=== PATIENT | female | born 1970 | race Two or more races ===

== ENCOUNTER 2019-11-09 14:15 | Inpatient (IN) | payer MEDICARE, MEDICAID ==
[~2019-11-09] VITALS: Ht 162.6 cm; Wt 89.8 kg
[~2019-11-09 14:15] MED LIST: ALBU18HF2 IH; ASPI-1497 PO; CARV3.1242 MT; CLON-457 MT; DIVA500T3 PO; FURO-152 PO; HYDR-4135 PO; KEPP500 PO; LORA-249 PO; POLY17PO3 MT; RISP0.2514 MT; SERT50TA MT; TRAZ-251 MT
[2019-11-09 15:21] LABS: BASOPHILS % 0.6 % (0.0-2.0); EOSINOPHILS % 1.2 % (0.0-5.0); HEMATOCRIT. 27.5 % (36.0-48.0); HEMOGLOBIN. 9.5 g/dL (12.0-16.0); MEAN CORPUSCULAR HEMOGLOBIN 32.1 pg (28.0-32.0); MEAN CORPUSCULAR VOLUME 92.9 fL (81.0-99.0); MEAN PLATELET VOLUME 7.2 fl (7.4-10.4); MONOCYTES % 5.8 % (2.0-8.0); NEUTROPHILS % 72.4 % (40.0-76.0); PLATELET 243 x1000/uL (130-400); RED BLOOD CELL COUNT 2.96 mill/uL (4.2-5.4); RED CELL DISTRIBUTION WIDTH 14.5 % (11.6-14.6)
[2019-11-09 15:28] LABS: CHLORIDE 98 mEq/L (98-107)
[2019-11-09] MEDS ORDERED: NITROGLYCERIN 0.4MG TABLET SL SL ONE (15:45)
[2019-11-09] MEDS ORDERED: ASPIRIN 325MG TABLET PO ONE (19:30)
[2019-11-09] MEDS ORDERED: NITROGLYCERIN 0.4MG TABLET SL SL PRN (19:45)
[2019-11-09] MEDS ORDERED: IPRATROPIUM/ALBUTEROL 0.5-3(2.5)MG/3ML NEB NEB PRN (19:45)
[2019-11-09] MEDS ORDERED: ACETAMINOPHEN 325MG TABLET PO PRN ×2 (19:45)
[2019-11-09] MEDS ORDERED: CLONIDINE 0.1MG TABLET PO PRN (19:45)
[2019-11-09] MEDS ORDERED: TRAMADOL 50MG TABLET PO PRN (19:45)
[2019-11-09] MEDS ORDERED: MAGNESIUM/ALUMINUM HYDROXIDE/SIMETHICONE 30ML UDC PO PRN (19:45)
[2019-11-09] MEDS ORDERED: ONDANSETRON HCL 4MG/2ML INJ IV PRN (19:45)
[2019-11-09] MEDS ORDERED: DOCUSATE SODIUM 100MG CAPSULE PO PRN (19:45)
[2019-11-09] MEDS ORDERED: GUAIFENESIN 200MG/10ML SUGAR FREE UDC PO PRN (19:45)
[2019-11-09] MEDS ORDERED: CLONIDINE 0.3MG TABLET PO ONE (20:00)
[2019-11-09] MEDS ORDERED: METOPROLOL TARTRATE 25MG TABLET PO SCH (21:00)
[2019-11-09 21:18] VITALS: BP 145/84
[2019-11-09 22:00] VITALS: BP 145/84
[2019-11-09] MEDS: ENOXAPARIN 40MG/0.4ML SYR SUBCUT SCH (22:31)
[2019-11-09] MEDS: LORAZEPAM 2MG/ML CPJ IV PRN (22:31)
[2019-11-09] MEDS: DIPHENHYDRAMINE 50MG/ML VIAL IV PRN (22:31)
[2019-11-09] MEDS: LISINOPRIL 20MG TABLET PO SCH (22:32)
[2019-11-09] MEDS: FAMOTIDINE 20MG TABLET PO SCH (22:33)
[2019-11-09] MEDS: ZOLPIDEM TARTRATE 5MG TABLET PO PRN (22:33)
[2019-11-09] MEDS: ASCORBIC ACID 500 MG TABLET PO SCH (22:33)
[2019-11-09] MEDS: HYDRALAZINE HCL 50MG TABLET PO SCH (22:33)
[2019-11-09] MEDS: LEVETIRACETAM 500MG TABLET PO SCH (22:33)
[2019-11-09 23:47] LABS: *AMPHETAMINES SCREEN URINE NEGATIVE (NEGATIVE); *BARBITURATES SCREEN URINE NEGATIVE (NEGATIVE); *BENZODIAZEPINES SCREEN URINE NEGATIVE (NEGATIVE); *COCAINE SCREEN URINE NEGATIVE (NEGATIVE); CANNABINOID URINE SCREEN NEGATIVE (NEGATIVE); PHENCYCLIDINE URINE SCREEN NEGATIVE (NEGATIVE)
[2019-11-09 23:48] LABS: METHADONE URINE SCREEN NEGATIVE (NEGATIVE); OPIATES URINE SCREEN NEGATIVE (NEGATIVE)
[2019-11-10] VITALS (7 sets, daily range): BP systolic 105–146; BP diastolic 53–95
[2019-11-10 00:20] LABS: CREATINE KINASE 112 IU/L (26-192)
[2019-11-10 00:21] LABS: CREATINE KINASE MB FRACTION < 1.0 ng/mL (0.5-3.6)
[2019-11-10] MEDS: HYDRALAZINE HCL 50MG TABLET PO SCH (05:15)
[2019-11-10] MEDS ORDERED: CARVEDILOL 12.5MG TABLET PO SCH (06:00)
[2019-11-10 06:13] LABS: CREATINE KINASE 100 IU/L (26-192)
[2019-11-10 06:15] LABS: CREATINE KINASE MB FRACTION < 1.0 ng/mL (0.5-3.6)
[2019-11-10] MEDS: SEVELAMER CARBONATE 800 MG TABLET PO SCH ×3 (06:40→17:28)
[2019-11-10] MEDS: ZINC SULFATE 220 MG ( 50 ) CAPSULE PO SCH (09:00)
[2019-11-10] MEDS ORDERED: AMLODIPINE 10MG TABLET PO SCH (09:00)
[2019-11-10] MEDS ORDERED: ASPIRIN 325MG EC TABLET PO SCH (09:00)
[2019-11-10] MEDS: LISINOPRIL 20MG TABLET PO SCH (09:00)
[2019-11-10] MEDS: LEVETIRACETAM 500MG TABLET PO SCH ×2 (09:22→21:08)
[2019-11-10] MEDS: ASCORBIC ACID 500 MG TABLET PO SCH ×2 (09:22→21:08)
[2019-11-10] MEDS ORDERED: PNEUMOCOCCAL 23-VAL P-SAC VAC 0.5 ML IM ONE (12:00)
[2019-11-10] MEDS: HYDRALAZINE HCL 25MG TABLET PO SCH ×2 (13:49→21:08)
[2019-11-10] MEDS: CARVEDILOL 6.25 MG TABLET PO SCH (17:18)
[2019-11-10] MEDS: FAMOTIDINE 20MG TABLET PO SCH (21:08)
[2019-11-10] MEDS: ZOLPIDEM TARTRATE 5MG TABLET PO PRN (21:09)
[2019-11-10] MEDS: ENOXAPARIN 40MG/0.4ML SYR SUBCUT SCH (21:09)
[2019-11-10] MEDS: LORAZEPAM 2MG/ML CPJ IV PRN (21:09)
[2019-11-10] MEDS: DIPHENHYDRAMINE 50MG/ML VIAL IV PRN (21:09)
[2019-11-11] VITALS: BP 113/57
[2019-11-11 04:00] VITALS: BP 170/114
[2019-11-11] MEDS: HYDRALAZINE HCL 25MG TABLET PO SCH ×3 (05:22→20:55)
[2019-11-11] MEDS: CARVEDILOL 6.25 MG TABLET PO SCH ×2 (05:22→17:26)
[2019-11-11] MEDS: LORAZEPAM 2MG/ML CPJ IV PRN ×2 (05:28→20:56)
[2019-11-11 06:09] LABS: BASOPHILS % 0.6 % (0.0-2.0); EOSINOPHILS % 1.3 % (0.0-5.0); HEMATOCRIT. 27.1 % (36.0-48.0); HEMOGLOBIN. 9.2 g/dL (12.0-16.0); LYMPHOCYTES % 24.4 % (20.0-50.0); MEAN CORPUSCULAR HEMOGLOBIN 31.5 pg (28.0-32.0); MEAN PLATELET VOLUME 7.4 fl (7.4-10.4); NEUTROPHILS % 62.7 % (40.0-76.0); PLATELET 248 x1000/uL (130-400); RED BLOOD CELL COUNT 2.91 mill/uL (4.2-5.4); RED CELL DISTRIBUTION WIDTH 14.3 % (11.6-14.6)
[2019-11-11 08:00] VITALS: BP 135/87
[2019-11-11] MEDS: ASCORBIC ACID 500 MG TABLET PO SCH ×2 (09:57→20:53)
[2019-11-11] MEDS: LISINOPRIL 10MG TABLET PO SCH (09:58)
[2019-11-11] MEDS: AMLODIPINE 2.5MG TABLET PO SCH (09:58)
[2019-11-11] MEDS: ASPIRIN 81MG EC TABLET PO SCH (09:58)
[2019-11-11] MEDS: SEVELAMER CARBONATE 800 MG TABLET PO SCH ×3 (09:59→16:48)
[2019-11-11] MEDS: ZINC SULFATE 220 MG ( 50 ) CAPSULE PO SCH (09:59)
[2019-11-11] MEDS: LEVETIRACETAM 500MG TABLET PO SCH ×2 (09:59→20:53)
[2019-11-11 12:00] VITALS: BP_SYST 152; BP_SYST 158; BP_DIAS 90; BP_DIAS 93
[2019-11-11 16:00] VITALS: BP 121/60
[2019-11-11 20:00] VITALS: BP 129/69
[2019-11-11] MEDS: FAMOTIDINE 20MG TABLET PO SCH (20:52)
[2019-11-11] MEDS: ENOXAPARIN 40MG/0.4ML SYR SUBCUT SCH (20:52)
[2019-11-11] MEDS: DIPHENHYDRAMINE 50MG/ML VIAL IV PRN (20:56)
[2019-11-11] MEDS: ZOLPIDEM TARTRATE 5MG TABLET PO PRN (23:38)
[2019-11-12] VITALS (7 sets, daily range): BP systolic 107–166; BP diastolic 55–102
[2019-11-12] MEDS: CARVEDILOL 6.25 MG TABLET PO SCH ×2 (05:24→17:18)
[2019-11-12] MEDS: HYDRALAZINE HCL 25MG TABLET PO SCH ×3 (05:24→22:57)
[2019-11-12 06:45] LABS: BASOPHILS % 0.5 % (0.0-2.0); EOSINOPHILS % 1.9 % (0.0-5.0); HEMATOCRIT. 26.1 % (36.0-48.0); HEMOGLOBIN. 8.8 g/dL (12.0-16.0); LYMPHOCYTES % 27.7 % (20.0-50.0); MEAN CORPUSCULAR HEMOGLOBIN 31.5 pg (28.0-32.0); MEAN CORPUSCULAR VOLUME 92.9 fL (81.0-99.0); MEAN PLATELET VOLUME 7.3 fl (7.4-10.4); MONOCYTES % 11.3 % (2.0-8.0); NEUTROPHILS % 58.6 % (40.0-76.0); PLATELET 233 x1000/uL (130-400); RED BLOOD CELL COUNT 2.81 mill/uL (4.2-5.4); RED CELL DISTRIBUTION WIDTH 14.7 % (11.6-14.6)
[2019-11-12] MEDS: ZINC SULFATE 220 MG ( 50 ) CAPSULE PO SCH (08:38)
[2019-11-12] MEDS: LEVETIRACETAM 500MG TABLET PO SCH ×2 (08:38→22:57)
[2019-11-12] MEDS: SEVELAMER CARBONATE 800 MG TABLET PO SCH ×3 (08:38→17:17)
[2019-11-12] MEDS: ASPIRIN 81MG EC TABLET PO SCH (08:38)
[2019-11-12] MEDS: ASCORBIC ACID 500 MG TABLET PO SCH ×2 (08:38→22:57)
[2019-11-12] MEDS: LISINOPRIL 10MG TABLET PO SCH (08:45)
[2019-11-12] MEDS: AMLODIPINE 2.5MG TABLET PO SCH (08:45)
[2019-11-12] MEDS: DIPHENHYDRAMINE 50MG/ML VIAL IV PRN (20:21)
[2019-11-12] MEDS: LORAZEPAM 2MG/ML CPJ IV PRN (20:24)
[2019-11-12] MEDS: FAMOTIDINE 20MG TABLET PO SCH (22:57)
[2019-11-12] MEDS: ENOXAPARIN 40MG/0.4ML SYR SUBCUT SCH (22:57)
[2019-11-12] MEDS: ZOLPIDEM TARTRATE 5MG TABLET PO PRN (23:06)
[2019-11-13 04:00] VITALS: BP 164/127
[2019-11-13] MEDS: HYDRALAZINE HCL 25MG TABLET PO SCH (05:12)
[2019-11-13] MEDS: CARVEDILOL 6.25 MG TABLET PO SCH (05:12)
[2019-11-13 05:14] VITALS: BP 180/102
[2019-11-13 06:34] VITALS: BP 147/83
[2019-11-13 06:37] LABS: BASOPHILS % 0.5 % (0.0-2.0); EOSINOPHILS % 1.1 % (0.0-5.0); HEMATOCRIT. 27.6 % (36.0-48.0); HEMOGLOBIN. 9.3 g/dL (12.0-16.0); LYMPHOCYTES % 19.7 % (20.0-50.0); MEAN CORPUSCULAR VOLUME 92.4 fL (81.0-99.0); MEAN PLATELET VOLUME 7.4 fl (7.4-10.4); MONOCYTES % 10.2 % (2.0-8.0); NEUTROPHILS % 68.5 % (40.0-76.0); PLATELET 248 x1000/uL (130-400); RED BLOOD CELL COUNT 2.99 mill/uL (4.2-5.4); RED CELL DISTRIBUTION WIDTH 14.2 % (11.6-14.6)
[2019-11-13 08:00] VITALS: BP_SYST 166; BP_SYST 186; BP_DIAS 100; BP_DIAS 71
[2019-11-13] MEDS: AMLODIPINE 2.5MG TABLET PO SCH (08:35)
[2019-11-13] MEDS: LEVETIRACETAM 500MG TABLET PO SCH (08:35)
[2019-11-13] MEDS: SEVELAMER CARBONATE 800 MG TABLET PO SCH (08:36)
[2019-11-13] MEDS: ZINC SULFATE 220 MG ( 50 ) CAPSULE PO SCH (08:36)
[2019-11-13] MEDS: ASCORBIC ACID 500 MG TABLET PO SCH (08:36)
[2019-11-13] MEDS: ASPIRIN 81MG EC TABLET PO SCH (08:36)
[2019-11-13] MEDS: LISINOPRIL 10MG TABLET PO SCH (08:36)
[2019-11-13 10:19] VITALS: BP 166/71
[2019-11-13] MEDS ORDERED: AMLODIPINE 2.5MG TABLET PO SCH (17:00)
== END 2019-11-13 10:41 | disposition home or self-care (01) | DRG 280 ==
LOC: ER 14:34 → 8WST 19:21 → ENRESERV 19:50
PROVIDERS: ADMIT Internal Medicine; ATTEND Internal Medicine
PROC: 5A1D70Z Performance of Urinary Filtration, Intermittent, Less than 6 Hours Per Day (ICD-10-PCS; principal; 2019-11-12)
DX: I21.4 Non-ST elevation (NSTEMI) myocardial infarction (principal); I50.33 Acute on chronic diastolic (congestive) heart failure; N18.6 End stage renal disease; I61.9 Nontraumatic intracerebral hemorrhage, unspecified; I13.2 Hypertensive heart and chronic kidney disease with heart failure and with stage 5 chronic kidney disease, or end stage renal disease; E44.1 Mild protein-calorie malnutrition; E87.1 Hypo-osmolality and hyponatremia; G90.9 Disorder of the autonomic nervous system, unspecified; G40.909 Epilepsy, unspecified, not intractable, without status epilepticus; J44.9 Chronic obstructive pulmonary disease, unspecified; F17.210 Nicotine dependence, cigarettes, uncomplicated; I07.1 Rheumatic tricuspid insufficiency; I27.21 Secondary pulmonary arterial hypertension; F41.9 Anxiety disorder, unspecified; D63.8 Anemia in other chronic diseases classified elsewhere; E87.6 Hypokalemia; E03.9 Hypothyroidism, unspecified; E78.00 Pure hypercholesterolemia, unspecified; E78.5 Hyperlipidemia, unspecified; E66.01 Morbid (severe) obesity due to excess calories; I25.10 Atherosclerotic heart disease of native coronary artery without angina pectoris; I95.9 Hypotension, unspecified; I45.81 Long QT syndrome; S09.90XA Unspecified injury of head, initial encounter; X58.XXXA Exposure to other specified factors, initial encounter; Y92.89 Other specified places as the place of occurrence of the external cause; Y99.8 Other external cause status; Z82.3 Family history of stroke; Z82.49 Family history of ischemic heart disease and other diseases of the circulatory system; Y93.89 Activity, other specified; Z83.3 Family history of diabetes mellitus; Z86.73 Personal history of transient ischemic attack (TIA), and cerebral infarction without residual deficits; Z99.2 Dependence on renal dialysis; Z79.51 Long term (current) use of inhaled steroids; Z79.82 Long term (current) use of aspirin; Z79.899 Other long term (current) drug therapy; Z71.6 Tobacco abuse counseling; Z68.34 Body mass index [BMI] 34.0-34.9, adult
CPT/HCPCS: 36415; 71045; 72100; 72170; 80048; 80053; 80061; 80305; 82550; 82553; 83036; 83735; 83880; 84484; 85025; 90732; 93005; 93970; 99285; J1200; J1650; J2060

== ENCOUNTER 2020-04-02 15:08 | Inpatient (IN) | payer MEDICARE, MEDICAID ==
[~2020-04-02] VITALS: Ht 167.6 cm; Wt 74.4 kg
[2020-04-02 17:33] LABS: BASOPHILS % 0.7 % (0.0-2.0); EOSINOPHILS % 1.4 % (0.0-5.0); HEMATOCRIT. 31.8 % (36.0-48.0); HEMOGLOBIN. 10.3 g/dL (12.0-16.0); LYMPHOCYTES % 19.5 % (20.0-50.0); MEAN CORPUSCULAR HEMOGLOBIN 29.3 pg (28.0-32.0); MEAN CORPUSCULAR VOLUME 90.3 fL (81.0-99.0); MEAN PLATELET VOLUME 6.8 fl (7.4-10.4); MONOCYTES % 9.8 % (2.0-8.0); NEUTROPHILS % 68.6 % (40.0-76.0); PLATELET 247 x1000/uL (130-400); RED BLOOD CELL COUNT 3.52 mill/uL (4.2-5.4); RED CELL DISTRIBUTION WIDTH 15.9 % (11.6-14.6)
[2020-04-02 17:40] LABS: CHLORIDE 102 mEq/L (98-107)
[2020-04-02 17:41] LABS: HCG SCREEN NEGATIVE
[2020-04-02 17:44] LABS: D-DIMER 0.49 mg/L FEU (<0.50); PARTIAL THROMBOPLASTIN TIME 29.5 sec (23.4-31.0); PROTHROMBIN TIME 10.8 sec (9.6-11.0)
[2020-04-02] MEDS ORDERED: ASPIRIN 81MG TABLET PO ONE (19:00)
[2020-04-03] MEDS: LORAZEPAM 1MG TABLET PO PRN ×2 (00:29→21:54)
[2020-04-03 00:30] VITALS: BP 148/92
[2020-04-03 04:00] VITALS: BP 147/89
[2020-04-03] MEDS ORDERED: ONDANSETRON HCL 4MG/2ML INJ IV PRN (08:00)
[2020-04-03] MEDS ORDERED: ACETAMINOPHEN 325MG TABLET PO PRN (08:00)
[2020-04-03 08:02] VITALS: BP 168/90
[2020-04-03] MEDS ORDERED: LORAZEPAM 0.5MG TABLET PO PRN (08:15)
[2020-04-03] MEDS: CARVEDILOL 3.125 MG TABLET PO SCH ×2 (08:55→20:22)
[2020-04-03] MEDS: RISPERIDONE 0.25MG TABLET PO SCH ×2 (08:56→16:02)
[2020-04-03] MEDS: HYDRALAZINE HCL 50MG TABLET PO SCH ×3 (08:58→21:53)
[2020-04-03] MEDS: LEVETIRACETAM 500MG TABLET PO SCH ×2 (08:58→20:22)
[2020-04-03] MEDS ORDERED: DIVALPROEX SODIUM 500MG DR TABLET PO SCH (09:00)
[2020-04-03] MEDS ORDERED: ASPIRIN 81MG EC TABLET PO SCH (09:00)
[2020-04-03] MEDS ORDERED: SERTRALINE HCL 50MG TABLET PO SCH (09:00)
[2020-04-03] MEDS ORDERED: FUROSEMIDE 20MG TABLET PO SCH (09:00)
[2020-04-03] MEDS ORDERED: INFLUENZA VACCINE 05/PF 0.5 ML VIAL IM ONE (10:00)
[2020-04-03] MEDS ORDERED: LISINOPRIL 5MG TABLET PO SCH (11:00)
[2020-04-03] MEDS ORDERED: AMLODIPINE 5MG TABLET PO SCH (11:00)
[2020-04-03 12:00] VITALS: BP_SYST 160; BP_SYST 171; BP_SYST 173; BP_DIAS 123; BP_DIAS 126; BP_DIAS 75
[2020-04-03] MEDS ORDERED: CLONIDINE 0.1MG TABLET PO PRN (12:00)
[2020-04-03] MEDS ORDERED: CLONIDINE 0.1MG TABLET PO NR (12:00)
[2020-04-03] MEDS: AMLODIPINE 5MG TABLET PO SCH ×2 (12:05→20:27)
[2020-04-03 16:00] VITALS: BP 124/61
[2020-04-03] MEDS ORDERED: ATORVASTATIN CALCIUM 10MG TABLET PO SCH (21:00)
[2020-04-03] MEDS ORDERED: TRAZODONE HCL 50MG TABLET PO SCH (21:00)
[2020-04-04] MEDS: HYDRALAZINE HCL 50MG TABLET PO SCH (07:09)
[2020-04-04 08:29] LABS: BASOPHILS % 0.9 % (0.0-2.0); EOSINOPHILS % 2.2 % (0.0-5.0); HEMATOCRIT. 30.8 % (36.0-48.0); HEMOGLOBIN. 10.1 g/dL (12.0-16.0); LYMPHOCYTES % 26.2 % (20.0-50.0); MEAN CORPUSCULAR HEMOGLOBIN 29.8 pg (28.0-32.0); MEAN CORPUSCULAR VOLUME 91.4 fL (81.0-99.0); MEAN PLATELET VOLUME 7.3 fl (7.4-10.4); MONOCYTES % 9.2 % (2.0-8.0); NEUTROPHILS % 61.5 % (40.0-76.0); PLATELET 240 x1000/uL (130-400); RED BLOOD CELL COUNT 3.37 mill/uL (4.2-5.4); RED CELL DISTRIBUTION WIDTH 15.8 % (11.6-14.6)
== END 2020-04-04 09:00 | disposition left against medical advice (07) | DRG 73 ==
LOC: ER 15:08 → 5WST 21:29 → ENRESERV 22:09
PROVIDERS: ADMIT Internal Medicine; ATTEND Internal Medicine
PROC: 5A1D70Z Performance of Urinary Filtration, Intermittent, Less than 6 Hours Per Day (ICD-10-PCS; principal; 2020-04-02)
DX: G90.8 Other disorders of autonomic nervous system (principal); N18.6 End stage renal disease; E44.1 Mild protein-calorie malnutrition; I12.0 Hypertensive chronic kidney disease with stage 5 chronic kidney disease or end stage renal disease; E11.22 Type 2 diabetes mellitus with diabetic chronic kidney disease; J44.9 Chronic obstructive pulmonary disease, unspecified; F41.9 Anxiety disorder, unspecified; E78.5 Hyperlipidemia, unspecified; E03.9 Hypothyroidism, unspecified; Z99.2 Dependence on renal dialysis; Z79.899 Other long term (current) drug therapy; Z86.73 Personal history of transient ischemic attack (TIA), and cerebral infarction without residual deficits; D63.1 Anemia in chronic kidney disease
CPT/HCPCS: 36415; 71045; 71100; 80048; 80053; 80061; 83735; 83880; 84484; 84703; 85025; 85379; 90686; 93005; 93306; 99285

== ENCOUNTER 2020-08-04 12:23 | Inpatient (IN) | payer MEDICARE, MEDICAID ==
[~2020-08-04] VITALS: Ht 162.6 cm; Wt 89.9 kg
[2020-08-04] MEDS ORDERED: NITROGLYCERIN 0.4MG TABLET SL SL PRN (12:45)
[2020-08-04 13:27] LABS: CHLORIDE 106 mEq/L (98-107); EOSINOPHILS % 2.5 % (0.0-5.0); HEMATOCRIT. 29.1 % (36.0-48.0); HEMOGLOBIN. 10.1 g/dL (12.0-16.0); LYMPHOCYTES % 26.1 % (20.0-50.0); MEAN CORPUSCULAR HEMOGLOBIN 31.6 pg (28.0-32.0); MEAN CORPUSCULAR VOLUME 91.3 fL (81.0-99.0); MEAN PLATELET VOLUME 7.2 fl (7.4-10.4); MONOCYTES % 8.9 % (2.0-8.0); NEUTROPHILS % 61.5 % (40.0-76.0); PLATELET 232 x1000/uL (130-400); RED BLOOD CELL COUNT 3.19 mill/uL (4.2-5.4); RED CELL DISTRIBUTION WIDTH 14.6 % (11.6-14.6)
[2020-08-04 13:31] LABS: HCG SCREEN NEGATIVE
[2020-08-04] MEDS ORDERED: ASPIRIN 325MG EC TABLET PO ONE (14:00)
[2020-08-04] MEDS ORDERED: HYDROCODONE/ACETAMINOPHEN 10/325MG TABLET PO PRN (16:30)
[2020-08-04] MEDS ORDERED: DIPHENHYDRAMINE 50MG CAPSULE PO NR (17:30)
[2020-08-04] MEDS: AMLODIPINE 10MG TABLET PO SCH (17:47)
[2020-08-04 20:00] VITALS: BP 160/73
[2020-08-04] MEDS ORDERED: DOCUSATE SODIUM 250MG CAPSULE PO PRN (23:00)
[2020-08-04] MEDS: DIPHENHYDRAMINE 50MG/ML VIAL IV PRN (23:02)
[2020-08-05] VITALS (7 sets, daily range): BP systolic 125–171; BP diastolic 66–98
[2020-08-05 00:07] LABS: CREATINE KINASE 99 IU/L (26-192); CREATINE KINASE MB FRACTION < 1.0 ng/mL (0.5-3.6)
[2020-08-05] MEDS ORDERED: LOSA100T32 PO (00:24)
[2020-08-05] MEDS ORDERED: CARV25TA47 MT (00:27)
[2020-08-05] MEDS ORDERED: CLONIDINE HCL MT SCH (01:00)
[2020-08-05] MEDS ORDERED: MEDICATION NOT ON FORMULARY EA (Carvedilol 1 TAB) MT SCH (01:00)
[2020-08-05] MEDS: CLONIDINE 0.1MG TABLET PO SCH ×4 (01:52→21:00)
[2020-08-05] MEDS: CARVEDILOL 12.5MG TABLET PO SCH ×3 (01:54→21:00)
[2020-08-05 06:55] LABS: CHLORIDE 110 mEq/L (98-107)
[2020-08-05 07:07] LABS: LDL CHOLESTEROL 59 mg/dL (5-100)
[2020-08-05 07:08] LABS: CREATINE KINASE 129 IU/L (26-192); CREATINE KINASE MB FRACTION 1.3 ng/mL (0.5-3.6); HDL CHOLESTEROL 50 mg/dL (40-59)
[2020-08-05] MEDS: AMLODIPINE 10MG TABLET PO SCH ×2 (08:46→17:30)
[2020-08-05] MEDS ORDERED: LOSARTAN POTASSIUM 100 MG TABLET PO SCH (09:00)
[2020-08-05 10:14] LABS: BASOPHILS % 0.6 % (0.0-2.0); EOSINOPHILS % 3.3 % (0.0-5.0); HEMATOCRIT. 27.4 % (36.0-48.0); HEMOGLOBIN. 9.4 g/dL (12.0-16.0); LYMPHOCYTES % 24.8 % (20.0-50.0); MEAN CORPUSCULAR HEMOGLOBIN 31.1 pg (28.0-32.0); MEAN CORPUSCULAR VOLUME 91.1 fL (81.0-99.0); MEAN PLATELET VOLUME 7.4 fl (7.4-10.4); MONOCYTES % 7.6 % (2.0-8.0); NEUTROPHILS % 63.7 % (40.0-76.0); PLATELET 204 x1000/uL (130-400); RED BLOOD CELL COUNT 3.01 mill/uL (4.2-5.4); RED CELL DISTRIBUTION WIDTH 14.5 % (11.6-14.6)
[2020-08-05] MEDS: LOSARTAN POTASSIUM 100 MG TABLET PO SCH (17:30)
[2020-08-05] MEDS ORDERED: DIPHENHYDRAMINE 50MG/ML VIAL IV PRN (19:15)
[2020-08-05 20:16] LABS: HEPATITIS B SURFACE ANTIGEN NEGATIVE
[2020-08-05 20:46] LABS: HEPATITIS A AB IGM NEGATIVE (NEGATIVE)
[2020-08-05] MEDS: DIPHENHYDRAMINE 50MG/ML VIAL IV PRN (23:24)
[2020-08-06] VITALS: BP 145/79
[2020-08-06 04:00] VITALS: BP 107/60
[2020-08-06 08:00] VITALS: BP 125/60
[2020-08-06] MEDS: CLONIDINE 0.1MG TABLET PO SCH (09:32)
[2020-08-06] MEDS: CARVEDILOL 12.5MG TABLET PO SCH (09:32)
[2020-08-06 12:00] VITALS: BP 117/63
[2020-08-06 15:41] VITALS: BP_SYST 117; BP_SYST 136; BP_DIAS 63; BP_DIAS 78
[2020-08-06 16:00] VITALS: BP 136/78
[2020-08-06] MEDS: LOSARTAN POTASSIUM 100 MG TABLET PO SCH (16:58)
[2020-08-06] MEDS: AMLODIPINE 10MG TABLET PO SCH (16:58)
== END 2020-08-06 17:15 | disposition home or self-care (01) | DRG 311 ==
LOC: ER 12:23 → 5WST 15:43 → EDBEDREQ 15:45 → EDBEDREQTM 15:45 → ENRESERV 19:13 → 5WST 21:22
PROVIDERS: ADMIT Family Medicine; ATTEND Family Medicine
PROC: 5A1D70Z Performance of Urinary Filtration, Intermittent, Less than 6 Hours Per Day (ICD-10-PCS; principal; 2020-08-05)
DX: I24.8 Other forms of acute ischemic heart disease (principal); N18.6 End stage renal disease; I13.2 Hypertensive heart and chronic kidney disease with heart failure and with stage 5 chronic kidney disease, or end stage renal disease; I50.32 Chronic diastolic (congestive) heart failure; E46 Unspecified protein-calorie malnutrition; J44.9 Chronic obstructive pulmonary disease, unspecified; K59.00 Constipation, unspecified; I25.10 Atherosclerotic heart disease of native coronary artery without angina pectoris; D63.1 Anemia in chronic kidney disease; E03.9 Hypothyroidism, unspecified; E66.9 Obesity, unspecified; E78.5 Hyperlipidemia, unspecified; E87.5 Hyperkalemia; F41.9 Anxiety disorder, unspecified; Z82.49 Family history of ischemic heart disease and other diseases of the circulatory system; Z83.3 Family history of diabetes mellitus; Z86.73 Personal history of transient ischemic attack (TIA), and cerebral infarction without residual deficits; Z99.2 Dependence on renal dialysis; Z79.899 Other long term (current) drug therapy; Z79.51 Long term (current) use of inhaled steroids; Z79.82 Long term (current) use of aspirin; Z84.1 Family history of disorders of kidney and ureter; Z68.34 Body mass index [BMI] 34.0-34.9, adult; Z87.891 Personal history of nicotine dependence
CPT/HCPCS: 36415; 71045; 80053; 80061; 82550; 82553; 83880; 84484; 84703; 85025; 86705; 86709; 86803; 87340; 93005; 99291; J1200; J7040; Q0163

== ENCOUNTER 2021-02-11 13:48 | Emergency (ER) | payer MEDICARE, MEDICAID ==
[~2021-02-11] VITALS: Ht 162.6 cm; Wt 91.0 kg
[~2021-02-11 13:48] MED LIST changes: +CARV25TA47 MT; -CARV3.1242 MT; -HYDR-4135 PO; +LOSA100T32 PO
[2021-02-11 13:51] VITALS: BP 148/100
[2021-02-11] MEDS ORDERED: MECLIZINE 25MG TABLET PO ONE (14:15)
== END 2021-02-11 14:28 | disposition left against medical advice (07) ==
LOC: ER 13:48
DX: R51.9 Headache, unspecified (principal); R42 Dizziness and giddiness; I10 Essential (primary) hypertension; I12.0 Hypertensive chronic kidney disease with stage 5 chronic kidney disease or end stage renal disease; E11.22 Type 2 diabetes mellitus with diabetic chronic kidney disease; N18.6 End stage renal disease; Z99.2 Dependence on renal dialysis
CPT/HCPCS: 99283

== ENCOUNTER 2021-05-29 09:16 | Inpatient (IN) | payer MEDICARE, MEDICAID ==
[~2021-05-29] VITALS: Ht 160 cm; Wt 86.2 kg
[2021-05-29] MEDS ORDERED: HYDRALAZINE 20MG/ML VIAL IV ONE ×3 (09:30→11:45)
[2021-05-29 10:33] LABS: BASOPHILS % 0.6 % (0.0-2.0); EOSINOPHILS % 0.5 % (0.0-5.0); HEMATOCRIT. 32.4 % (36.0-48.0); HEMOGLOBIN. 11.1 g/dL (12.0-16.0); LYMPHOCYTES % 13.9 % (20.0-50.0); MEAN CORPUSCULAR HEMOGLOBIN 31.6 pg (28.0-32.0); MEAN CORPUSCULAR VOLUME 92.3 fL (81.0-99.0); MEAN PLATELET VOLUME 7.3 fl (7.4-10.4); MONOCYTES % 10.3 % (2.0-8.0); NEUTROPHILS % 74.7 % (40.0-76.0); PLATELET 248 x1000/uL (130-400); RED BLOOD CELL COUNT 3.51 mill/uL (4.2-5.4); RED CELL DISTRIBUTION WIDTH 14.9 % (11.6-14.6)
[2021-05-29 10:37] LABS: CHLORIDE 105 mEq/L (98-107)
[2021-05-29] MEDS ORDERED: INSULIN REGULAR (HUMULIN R) 300UNITS/3ML VIAL IV ONE ×2 (11:15→11:45)
[2021-05-29] MEDS ORDERED: DEXTROSE 50% WATER 50ML SYRINGE IV ONE ×2 (11:15→11:45)
[2021-05-29] MEDS ORDERED: CALCIUM GLUCONATE 1,000 MG in DEXT 5% WATER 100 ML IV ONE (11:15)
[2021-05-29] MEDS ORDERED: LORAZEPAM 2MG/ML CPJ IV ONE (12:30)
[2021-05-29] MEDS ORDERED: IPRATROPIUM/ALBUTEROL 0.5-3(2.5)MG/3ML NEB HHN PRN (13:00)
[2021-05-29] MEDS ORDERED: ONDANSETRON HCL 4MG/2ML INJ IV PRN (13:00)
[2021-05-29] MEDS ORDERED: LABETALOL 5MG/ML SYR 20 MG/4 ML SYRINGE IV ONE (13:00)
[2021-05-29] MEDS ORDERED: CLONIDINE 0.1MG TABLET PO PRN (13:00)
[2021-05-29] MEDS ORDERED: ACETAMINOPHEN 325MG TABLET PO PRN (13:00)
[2021-05-29 18:05] VITALS: BP 206/139
[2021-05-29] MEDS ORDERED: LOSARTAN POTASSIUM 50 MG TABLET PO SCH (18:15)
[2021-05-29] MEDS ORDERED: CARVEDILOL 6.25 MG TABLET PO SCH (18:15)
[2021-05-29 19:45] VITALS: BP 229/147
[2021-05-29] MEDS ORDERED: HYDRALAZINE 20MG/ML VIAL IV NR (21:15)
[2021-05-29] MEDS ORDERED: LORAZEPAM 2MG/ML CPJ IV PRN (21:15)
[2021-05-29] MEDS ORDERED: FUROSEMIDE 40MG/4ML VIAL IVP NR (21:15)
[2021-05-29] MEDS ORDERED: HYDRALAZINE 20MG/ML VIAL IV PRN (21:15)
[2021-05-29] MEDS: AMLODIPINE 5MG TABLET PO SCH (21:48)
[2021-05-29 22:00] VITALS: BP 180/137
[2021-05-29] MEDS: HYDRALAZINE HCL 100MG TABLET PO SCH (22:00)
[2021-05-29] MEDS ORDERED: CLONIDINE HCL 0.1MG/24HR PATCH TD SCH (23:00)
[2021-05-30] VITALS (12 sets, daily range): BP systolic 106–196; BP diastolic 69–112
[2021-05-30] MEDS ORDERED: LORAZEPAM 2MG/ML CPJ IV NR (01:15)
[2021-05-30] MEDS ORDERED: LORAZEPAM 2MG/ML CPJ IV PRN (01:15)
[2021-05-30] MEDS: HYDRALAZINE HCL 100MG TABLET PO SCH ×3 (06:00→22:00)
[2021-05-30 07:46] LABS: HEMOGLOBIN. 11.6 g/dL (12.0-16.0); MEAN CORPUSCULAR HEMOGLOBIN 31.3 pg (28.0-32.0); MEAN PLATELET VOLUME 7.3 fl (7.4-10.4); PLATELET 259 x1000/uL (130-400); RED CELL DISTRIBUTION WIDTH 15.4 % (11.6-14.6)
[2021-05-30 07:53] LABS: CHLORIDE 102 mEq/L (98-107)
[2021-05-30] MEDS: AMLODIPINE 5MG TABLET PO SCH ×2 (10:45→17:43)
[2021-05-30] MEDS: CARVEDILOL 6.25 MG TABLET PO SCH ×2 (11:00→20:43)
[2021-05-30] MEDS: DIPHENHYDRAMINE 25MG CAPSULE PO PRN ×2 (13:33→20:44)
[2021-05-30] MEDS: NITROGLYCERIN OINT 1GM/INCH UDPKT TD SCH (17:43)
[2021-05-30] MEDS: QUETIAPINE FUMARATE 25MG TABLET PO SCH (20:43)
[2021-05-30] MEDS: ASPIRIN 81MG EC TABLET PO SCH (20:44)
[2021-05-30] MEDS ORDERED: ATORVASTATIN CALCIUM 40MG TABLET PO SCH (21:00)
[2021-05-30 22:43] LABS: PLATELET ESTIMATE NORMAL
[2021-05-31] VITALS (8 sets, daily range): BP systolic 94–132; BP diastolic 59–93
[2021-05-31] MEDS: LORAZEPAM 1MG TABLET PO PRN ×2 (01:28→11:58)
[2021-05-31] MEDS: HYDRALAZINE HCL 100MG TABLET PO SCH ×2 (06:00→14:00)
[2021-05-31] MEDS: NITROGLYCERIN OINT 1GM/INCH UDPKT TD SCH ×3 (06:31→12:01)
[2021-05-31 07:23] LABS: HEMATOCRIT. 33.2 % (36.0-48.0); HEMOGLOBIN. 11.1 g/dL (12.0-16.0); MEAN CORPUSCULAR HEMOGLOBIN 31.5 pg (28.0-32.0); MEAN CORPUSCULAR VOLUME 94.3 fL (81.0-99.0); MEAN PLATELET VOLUME 7.3 fl (7.4-10.4); PLATELET 228 x1000/uL (130-400); RED BLOOD CELL COUNT 3.52 mill/uL (4.2-5.4); RED CELL DISTRIBUTION WIDTH 15.7 % (11.6-14.6)
[2021-05-31] MEDS: ASPIRIN 81MG EC TABLET PO SCH (09:15)
[2021-05-31] MEDS: QUETIAPINE FUMARATE 25MG TABLET PO SCH (09:15)
[2021-05-31] MEDS: AMLODIPINE 5MG TABLET PO SCH (09:16)
[2021-05-31] MEDS: CARVEDILOL 6.25 MG TABLET PO SCH (09:16)
[2021-05-31 16:46] LABS: PLATELET ESTIMATE NORMAL
== END 2021-05-31 18:01 | disposition home health service (06) | DRG 70 ==
LOC: ER 09:26 → 3WST 11:40 → EDBEDREQ 12:04 → EDBEDREQSVC 12:04 → ENRESERV 16:20
PROVIDERS: ADMIT Internal Medicine; ATTEND Internal Medicine
PROC: 5A1D70Z Performance of Urinary Filtration, Intermittent, Less than 6 Hours Per Day (ICD-10-PCS; principal; 2021-05-29)
DX: G93.41 Metabolic encephalopathy (principal); N18.6 End stage renal disease; E46 Unspecified protein-calorie malnutrition; I12.0 Hypertensive chronic kidney disease with stage 5 chronic kidney disease or end stage renal disease; E87.5 Hyperkalemia; I16.0 Hypertensive urgency; R77.8 Other specified abnormalities of plasma proteins; E11.22 Type 2 diabetes mellitus with diabetic chronic kidney disease; G40.909 Epilepsy, unspecified, not intractable, without status epilepticus; D63.8 Anemia in other chronic diseases classified elsewhere; E03.9 Hypothyroidism, unspecified; E78.5 Hyperlipidemia, unspecified; F41.9 Anxiety disorder, unspecified; J44.9 Chronic obstructive pulmonary disease, unspecified; Z79.899 Other long term (current) drug therapy; Z99.2 Dependence on renal dialysis; Z79.82 Long term (current) use of aspirin; Z82.49 Family history of ischemic heart disease and other diseases of the circulatory system; Z83.3 Family history of diabetes mellitus; Z79.84 Long term (current) use of oral hypoglycemic drugs; Z78.1 Physical restraint status; Z68.33 Body mass index [BMI] 33.0-33.9, adult; Z86.73 Personal history of transient ischemic attack (TIA), and cerebral infarction without residual deficits; Z87.891 Personal history of nicotine dependence
CPT/HCPCS: 36415; 70551; 71045; 80048; 80053; 80307; 82140; 82962; 83735; 84439; 84443; 84484; 85025; 93005; 93306; 93970; 99291; J0360; J0610; J1815; J2060; J7060; Q0163

== ENCOUNTER 2021-11-03 16:38 | Inpatient (IN) | payer MEDICARE, MEDICAID ==
[~2021-11-03] VITALS: Ht 160 cm; Wt 95.3 kg
[2021-11-03 17:09] LABS: BASOPHILS % 0.3 % (0.0-2.0); EOSINOPHILS % 1.4 % (0.0-5.0); HEMATOCRIT. 29.3 % (36.0-48.0); LYMPHOCYTES % 17.3 % (20.0-50.0); MEAN CORPUSCULAR HEMOGLOBIN 32.9 pg (28.0-32.0); MEAN CORPUSCULAR VOLUME 96.4 fL (81.0-99.0); MEAN PLATELET VOLUME 7.2 fl (7.4-10.4); PLATELET 273 x1000/uL (130-400); RED BLOOD CELL COUNT 3.04 mill/uL (4.2-5.4); RED CELL DISTRIBUTION WIDTH 13.9 % (11.6-14.6)
[2021-11-03 17:14] LABS: CHLORIDE 89 mEq/L (98-107)
[2021-11-04] MEDS ORDERED: GUAIFENESIN 200MG/10ML SUGAR FREE UDC PO PRN
[2021-11-04] MEDS ORDERED: HYDROMORPHONE HCL/PF 2MG/ML CPJ IV PRN
[2021-11-04] MEDS ORDERED: DOCUSATE SODIUM 100MG CAPSULE PO PRN
[2021-11-04] MEDS ORDERED: CLONIDINE 0.1MG TABLET PO PRN
[2021-11-04] MEDS ORDERED: MAGNESIUM/ALUMINUM HYDROXIDE/SIMETHICONE 30ML UDC PO PRN
[2021-11-04] MEDS ORDERED: IPRATROPIUM/ALBUTEROL 0.5-3(2.5)MG/3ML NEB HHN PRN
[2021-11-04] MEDS ORDERED: NITROGLYCERIN 0.4MG TABLET SL SL PRN
[2021-11-04] MEDS ORDERED: ACETAMINOPHEN 325MG TABLET PO PRN
[2021-11-04] MEDS ORDERED: MORPHINE SULFATE 2 MG/ML CPJ (NOT FOR IM USE) IV PRN
[2021-11-04] MEDS ORDERED: DEXTROSE 50% WATER 50ML SYRINGE IV PRN (00:30)
[2021-11-04 01:20] VITALS: BP 164/100
[2021-11-04 01:50] VITALS: BP 155/91
[2021-11-04] MEDS: BLOOD SUGAR DIAGNOSTIC STRIP TEST SCH ×4 (06:19→21:15)
[2021-11-04] MEDS: INSULIN LISPRO 100 UNITS/ML SUBCUT SCH ×4 (06:20→21:31)
[2021-11-04 08:00] VITALS: BP 170/101
[2021-11-04] MEDS: SERTRALINE HCL 50MG TABLET PO SCH (08:37)
[2021-11-04] MEDS: FUROSEMIDE 20MG TABLET PO SCH (08:38)
[2021-11-04] MEDS: CARVEDILOL 12.5MG TABLET PO SCH ×2 (08:38→21:30)
[2021-11-04] MEDS: ASPIRIN 81MG EC TABLET PO SCH (08:38)
[2021-11-04] MEDS: DIVALPROEX SODIUM 500MG DR TABLET PO SCH (08:38)
[2021-11-04] MEDS: LEVETIRACETAM 500MG TABLET PO SCH ×2 (08:39→21:28)
[2021-11-04] MEDS: LOSARTAN POTASSIUM 100 MG TABLET PO SCH (08:39)
[2021-11-04] MEDS ORDERED: MEDICATION NOT ON FORMULARY EA (Carvedilol 1 TAB) MT SCH (09:00)
[2021-11-04] MEDS: RISPERIDONE 0.25MG TABLET PO SCH ×2 (09:00→16:47)
[2021-11-04 10:49] LABS: BASOPHILS % 0.3 % (0.0-2.0); EOSINOPHILS % 0.8 % (0.0-5.0); HEMATOCRIT. 28.2 % (36.0-48.0); HEMOGLOBIN. 9.8 g/dL (12.0-16.0); LYMPHOCYTES % 10.7 % (20.0-50.0); MEAN CORPUSCULAR VOLUME 95.5 fL (81.0-99.0); MEAN PLATELET VOLUME 7.2 fl (7.4-10.4); MONOCYTES % 10.2 % (2.0-8.0); PLATELET 264 x1000/uL (130-400); RED BLOOD CELL COUNT 2.96 mill/uL (4.2-5.4); RED CELL DISTRIBUTION WIDTH 13.9 % (11.6-14.6)
[2021-11-04 11:03] LABS: CHLORIDE 90 mEq/L (98-107)
[2021-11-04 11:11] LABS: TOTAL IRON BINDING CAPACITY 239 ug/dL (250-450)
[2021-11-04 11:19] LABS: CREATINE KINASE MB FRACTION 3.1 ng/mL (0.5-3.6); HDL CHOLESTEROL 58 mg/dL (40-59); LDL CHOLESTEROL 80 mg/dL (5-100)
[2021-11-04 11:23] LABS: T4 FREE 0.9 ng/dL (0.76-1.46)
[2021-11-04 11:26] LABS: PHOSPHORUS 9.8 mg/dL (2.5-4.9)
[2021-11-04] MEDS: DIPHENHYDRAMINE 50MG CAPSULE PO PRN ×2 (11:29→17:31)
[2021-11-04 11:37] LABS: FOLIC ACID (FOLATE) SERUM 15.4 ng/mL (>5.38)
[2021-11-04] MEDS ORDERED: HYDRALAZINE HCL 100MG TABLET PO NR (11:45)
[2021-11-04] MEDS ORDERED: NALOXONE HCL 0.4MG/ML VIAL IV PRN (11:45)
[2021-11-04 12:00] VITALS: BP 164/70
[2021-11-04] MEDS: LORAZEPAM 0.5MG TABLET PO PRN (12:18)
[2021-11-04] MEDS: ONDANSETRON HCL 4MG/2ML INJ IV PRN (13:26)
[2021-11-04 16:00] VITALS: BP 121/51
[2021-11-04 17:56] LABS: CREATINE KINASE MB FRACTION 3.1 ng/mL (0.5-3.6)
[2021-11-04 20:00] VITALS: BP 166/92
[2021-11-04] MEDS: TRAZODONE HCL 50MG TABLET PO SCH (21:28)
[2021-11-04] MEDS: HYDRALAZINE HCL 100MG TABLET PO SCH (21:29)
[2021-11-05] VITALS: BP 134/46
[2021-11-05 01:57] LABS: CREATINE KINASE MB FRACTION 2.8 ng/mL (0.5-3.6)
[2021-11-05 04:00] VITALS: BP 130/99
[2021-11-05] MEDS: INSULIN LISPRO 100 UNITS/ML SUBCUT SCH ×4 (07:02→21:00)
[2021-11-05] MEDS: BLOOD SUGAR DIAGNOSTIC STRIP TEST SCH ×4 (07:02→21:01)
[2021-11-05 08:00] VITALS: BP 161/97
[2021-11-05] MEDS: RISPERIDONE 0.25MG TABLET PO SCH ×2 (08:46→18:30)
[2021-11-05] MEDS: SERTRALINE HCL 50MG TABLET PO SCH (08:46)
[2021-11-05] MEDS: FUROSEMIDE 20MG TABLET PO SCH (08:46)
[2021-11-05] MEDS: ONDANSETRON HCL 4MG/2ML INJ IV PRN (08:46)
[2021-11-05] MEDS: LEVETIRACETAM 500MG TABLET PO SCH ×2 (08:46→21:01)
[2021-11-05] MEDS: DIPHENHYDRAMINE 50MG CAPSULE PO PRN ×2 (08:56→22:34)
[2021-11-05] MEDS: CARVEDILOL 12.5MG TABLET PO SCH ×2 (08:57→21:01)
[2021-11-05] MEDS: HYDRALAZINE HCL 100MG TABLET PO SCH ×2 (08:58→21:01)
[2021-11-05] MEDS: DIVALPROEX SODIUM 500MG DR TABLET PO SCH (08:58)
[2021-11-05] MEDS: ASPIRIN 81MG EC TABLET PO SCH (08:58)
[2021-11-05] MEDS: LOSARTAN POTASSIUM 100 MG TABLET PO SCH (09:02)
[2021-11-05] MEDS: LORAZEPAM 0.5MG TABLET PO PRN ×2 (11:58→22:34)
[2021-11-05 20:49] VITALS: BP 128/57
[2021-11-05] MEDS: TRAZODONE HCL 50MG TABLET PO SCH (21:01)
[2021-11-05] MEDS ORDERED: DIPHENHYDRAMINE 50MG/ML VIAL IV PRN (22:45)
[2021-11-05] MEDS ORDERED: DIPHENHYDRAMINE 50MG/ML VIAL IV NR (22:45)
[2021-11-06 00:04] VITALS: BP 134/77
[2021-11-06 06:37] VITALS: BP 133/76
[2021-11-06] MEDS: BLOOD SUGAR DIAGNOSTIC STRIP TEST SCH ×3 (06:51→16:55)
[2021-11-06] MEDS: INSULIN LISPRO 100 UNITS/ML SUBCUT SCH ×3 (07:10→16:56)
[2021-11-06 08:00] VITALS: BP 110/78
[2021-11-06 08:49] LABS: BASOPHILS % 0.4 % (0.0-2.0); EOSINOPHILS % 1.4 % (0.0-5.0); HEMATOCRIT. 26.8 % (36.0-48.0); HEMOGLOBIN. 9.2 g/dL (12.0-16.0); LYMPHOCYTES % 21.2 % (20.0-50.0); MEAN CORPUSCULAR HEMOGLOBIN 33.3 pg (28.0-32.0); MEAN CORPUSCULAR VOLUME 96.7 fL (81.0-99.0); MEAN PLATELET VOLUME 7.4 fl (7.4-10.4); MONOCYTES % 13.8 % (2.0-8.0); NEUTROPHILS % 63.2 % (40.0-76.0); PLATELET 227 x1000/uL (130-400); RED BLOOD CELL COUNT 2.77 mill/uL (4.2-5.4); RED CELL DISTRIBUTION WIDTH 13.9 % (11.6-14.6)
[2021-11-06] MEDS: FUROSEMIDE 20MG TABLET PO SCH ×2 (09:00→09:33)
[2021-11-06] MEDS: CARVEDILOL 12.5MG TABLET PO SCH (09:00)
[2021-11-06] MEDS: HYDRALAZINE HCL 100MG TABLET PO SCH (09:00)
[2021-11-06] MEDS: LOSARTAN POTASSIUM 100 MG TABLET PO SCH (09:00)
[2021-11-06 09:11] LABS: CHLORIDE 91 mEq/L (98-107)
[2021-11-06] MEDS: ASPIRIN 81MG EC TABLET PO SCH (09:32)
[2021-11-06] MEDS: LEVETIRACETAM 500MG TABLET PO SCH (09:32)
[2021-11-06] MEDS: DIVALPROEX SODIUM 500MG DR TABLET PO SCH (09:32)
[2021-11-06] MEDS: SERTRALINE HCL 50MG TABLET PO SCH (09:32)
[2021-11-06] MEDS: RISPERIDONE 0.25MG TABLET PO SCH ×2 (09:32→16:52)
[2021-11-06 10:01] LABS: PHOSPHORUS 9.8 mg/dL (2.5-4.9)
[2021-11-06 12:00] VITALS: BP 136/81
[2021-11-06] MEDS ORDERED: DIPHENHYDRAMINE 50MG/ML VIAL IV NR (15:00)
[2021-11-06 16:00] VITALS: BP 130/86
[2021-11-06] MEDS ORDERED: HEPARIN SODIUM 1,000 UNIT/1ML VIAL IV NR (17:00)
[2021-11-06 18:41] VITALS: BP 130/86
== END 2021-11-06 18:50 | disposition home or self-care (01) | DRG 280 ==
LOC: ER 16:38 → EDBEDREQTM 18:48 → EDBEDREQ 18:48 → MICUSO 22:48 → EDBEDREQ 23:14 → EDBEDREQSVC 23:14 → EDBEDREQTM 23:14 → 7EST 11-04 01:57
PROVIDERS: ADMIT Internal Medicine Nephrology; ATTEND Internal Medicine Nephrology
PROC: 5A1D70Z Performance of Urinary Filtration, Intermittent, Less than 6 Hours Per Day (ICD-10-PCS; principal; 2021-11-04)
DX: I13.2 Hypertensive heart and chronic kidney disease with heart failure and with stage 5 chronic kidney disease, or end stage renal disease (principal); I21.4 Non-ST elevation (NSTEMI) myocardial infarction; I50.33 Acute on chronic diastolic (congestive) heart failure; N18.6 End stage renal disease; E87.1 Hypo-osmolality and hyponatremia; I25.10 Atherosclerotic heart disease of native coronary artery without angina pectoris; J45.909 Unspecified asthma, uncomplicated; R56.9 Unspecified convulsions; F31.9 Bipolar disorder, unspecified; E11.22 Type 2 diabetes mellitus with diabetic chronic kidney disease; F41.9 Anxiety disorder, unspecified; D63.1 Anemia in chronic kidney disease; E66.9 Obesity, unspecified; E87.8 Other disorders of electrolyte and fluid balance, not elsewhere classified; Z79.899 Other long term (current) drug therapy; F15.90 Other stimulant use, unspecified, uncomplicated; Z79.82 Long term (current) use of aspirin; Z80.9 Family history of malignant neoplasm, unspecified; Z68.37 Body mass index [BMI] 37.0-37.9, adult; Z82.3 Family history of stroke; Z99.2 Dependence on renal dialysis; Z82.49 Family history of ischemic heart disease and other diseases of the circulatory system; Z83.3 Family history of diabetes mellitus
CPT/HCPCS: 36415; 71045; 80053; 80061; 82542; 82550; 82553; 82607; 82728; 82746; 82962; 83036; 83540; 83550; 83735; 83880; 83930; 84100; 84439; 84443; 84484; 85025; 85379; 93005; 93306; 93970; 99285; C1893; J1200; J1644; J1815; J2270; J2405; Q0163

== ENCOUNTER 2022-02-19 18:14 | Inpatient (IN) | payer MEDICARE, MEDICAID ==
[~2022-02-19] VITALS: Ht 160 cm; Wt 88.9 kg
[2022-02-19 21:15] LABS: HEMATOCRIT. 21.8 % (36.0-48.0); HEMOGLOBIN. 7.5 g/dL (12.0-16.0); MEAN CORPUSCULAR HEMOGLOBIN 31.9 pg (28.0-32.0); MEAN CORPUSCULAR VOLUME 92.5 fL (81.0-99.0); MEAN PLATELET VOLUME 7.1 fl (7.4-10.4); PLATELET 195 x1000/uL (130-400); RED BLOOD CELL COUNT 2.35 mill/uL (4.2-5.4); RED CELL DISTRIBUTION WIDTH 14.6 % (11.6-14.6)
[2022-02-19 21:20] LABS: CHLORIDE 95 mEq/L (98-107)
[2022-02-19 21:34] LABS: PLATELET ESTIMATE NORMAL
[2022-02-20] MEDS ORDERED: ASPIRIN 81MG TABLET PO ONE (01:15)
[2022-02-20] MEDS ORDERED: ASPIRIN 81MG TABLET PO NR (05:30)
[2022-02-20] MEDS: CLONIDINE 0.1MG TABLET PO PRN (07:01)
[2022-02-20] MEDS: AMLODIPINE 10MG TABLET PO SCH (09:25)
[2022-02-20] MEDS ORDERED: HYDRALAZINE HCL 50MG TABLET PO NR (12:30)
[2022-02-20] MEDS ORDERED: ONDANSETRON HCL 4MG/2ML INJ IV PRN (12:30)
[2022-02-20] MEDS ORDERED: ACETAMINOPHEN 325MG TABLET PO PRN (12:30)
[2022-02-20] MEDS: HYDRALAZINE HCL 50MG TABLET PO SCH ×2 (14:00→22:00)
[2022-02-20] MEDS ORDERED: EPOETIN ALFA-EPBX 4,000 UNIT/ML VIAL SUBCUT NR (21:00)
[2022-02-20] MEDS ORDERED: AMLO5TAB88 MT (21:20)
[2022-02-20 21:23] VITALS: BP 185/89
[2022-02-20] MEDS ORDERED: CLONIDINE 0.1MG TABLET PO PRN (21:30)
[2022-02-20] MEDS ORDERED: IPRATROPIUM/ALBUTEROL 0.5-3(2.5)MG/3ML NEB HHN PRN (21:30)
[2022-02-20] MEDS ORDERED: DIVA500T51 PO (22:13)
[2022-02-20] MEDS: LEVETIRACETAM 500MG/5ML CUP PO SCH (22:31)
[2022-02-20] MEDS: RISPERIDONE 0.25MG TABLET PO SCH (22:31)
[2022-02-20] MEDS: TRAZODONE HCL 50MG TABLET PO SCH (22:31)
[2022-02-20] MEDS: CARVEDILOL 12.5MG TABLET PO SCH (22:32)
[2022-02-20 23:06] VITALS: BP 185/89
[2022-02-21] VITALS (10 sets, daily range): BP systolic 120–183; BP diastolic 54–98
[2022-02-21] MEDS: LORAZEPAM 0.5MG TABLET PO PRN (03:55)
[2022-02-21] MEDS: CLONIDINE 0.1MG TABLET PO PRN (04:28)
[2022-02-21] MEDS: HYDRALAZINE HCL 50MG TABLET PO SCH ×3 (05:39→21:20)
[2022-02-21 06:38] LABS: BASOPHILS % 0.4 % (0.0-2.0); EOSINOPHILS % 3.8 % (0.0-5.0); HEMOGLOBIN. 7.6 g/dL (12.0-16.0); LYMPHOCYTES % 20.5 % (20.0-50.0); MEAN CORPUSCULAR HEMOGLOBIN 31.8 pg (28.0-32.0); MEAN CORPUSCULAR VOLUME 91.9 fL (81.0-99.0); MEAN PLATELET VOLUME 7.7 fl (7.4-10.4); MONOCYTES % 11.7 % (2.0-8.0); NEUTROPHILS % 63.6 % (40.0-76.0); PLATELET 172 x1000/uL (130-400); RED CELL DISTRIBUTION WIDTH 14.7 % (11.6-14.6)
[2022-02-21] MEDS: LOSARTAN POTASSIUM 100 MG TABLET PO SCH (08:59)
[2022-02-21] MEDS ORDERED: ASPIRIN 81MG EC TABLET PO SCH (09:00)
[2022-02-21] MEDS: AMLODIPINE 10MG TABLET PO SCH (09:00)
[2022-02-21] MEDS ORDERED: AMLODIPINE 5MG TABLET PO SCH (09:00)
[2022-02-21] MEDS: DIVALPROEX SODIUM 500MG ER TABLET PO SCH (09:01)
[2022-02-21] MEDS: SERTRALINE HCL 50MG TABLET PO SCH (09:01)
[2022-02-21] MEDS: CARVEDILOL 12.5MG TABLET PO SCH (09:02)
[2022-02-21] MEDS: RISPERIDONE 0.25MG TABLET PO SCH ×2 (09:02→21:20)
[2022-02-21] MEDS: LEVETIRACETAM 500MG/5ML CUP PO SCH ×2 (09:04→21:20)
[2022-02-21] MEDS ORDERED: DIPHENHYDRAMINE 50MG/ML VIAL IV PRN (15:15)
[2022-02-21] MEDS ORDERED: EPOETIN ALFA-EPBX 4,000 UNIT/ML VIAL SUBCUT SCH (21:00)
[2022-02-21] MEDS: TRAZODONE HCL 50MG TABLET PO SCH (21:20)
[2022-02-22] VITALS: BP 141/81
[2022-02-22] MEDS: LORAZEPAM 0.5MG TABLET PO PRN ×2 (03:48→15:12)
[2022-02-22 04:00] VITALS: BP 124/75
[2022-02-22] MEDS: HYDRALAZINE HCL 50MG TABLET PO SCH (05:04)
[2022-02-22 08:00] VITALS: BP 157/97
[2022-02-22] MEDS: DIVALPROEX SODIUM 500MG ER TABLET PO SCH (09:11)
[2022-02-22] MEDS: AMLODIPINE 10MG TABLET PO SCH (09:11)
[2022-02-22] MEDS: LOSARTAN POTASSIUM 100 MG TABLET PO SCH (09:11)
[2022-02-22] MEDS: RISPERIDONE 0.25MG TABLET PO SCH (09:11)
[2022-02-22] MEDS: SERTRALINE HCL 50MG TABLET PO SCH (09:11)
[2022-02-22] MEDS: LEVETIRACETAM 500MG/5ML CUP PO SCH (09:11)
[2022-02-22 10:45] LABS: HEMATOCRIT. 22.9 % (36.0-48.0); HEMOGLOBIN. 7.6 g/dL (12.0-16.0); MEAN CORPUSCULAR HEMOGLOBIN 31.4 pg (28.0-32.0); MEAN CORPUSCULAR VOLUME 95.1 fL (81.0-99.0); MEAN PLATELET VOLUME 7.7 fl (7.4-10.4); PLATELET 140 x1000/uL (130-400); RED BLOOD CELL COUNT 2.41 mill/uL (4.2-5.4); RED CELL DISTRIBUTION WIDTH 14.4 % (11.6-14.6)
[2022-02-22 12:00] VITALS: BP 155/89
[2022-02-22] MEDS ORDERED: HYDRALAZINE HCL 50MG TABLET PO SCH (14:00)
[2022-02-22 14:39] LABS: PLATELET ESTIMATE NORMAL
[2022-02-22 16:00] VITALS: BP 146/84
[2022-02-22 18:48] VITALS: BP 146/84
[2022-02-22] MEDS ORDERED: EPOETIN ALFA-EPBX 4,000 UNIT/ML VIAL SUBCUT SCH (21:00)
== END 2022-02-22 19:10 | disposition home or self-care (01) | DRG 291 ==
LOC: ER 18:14 → 7WST 02-20 02:40 → EDBEDREQ 02-20 02:45 → ENRESERV 02-20 19:55 → ER 02-20 20:07
PROVIDERS: ADMIT Internal Medicine; ATTEND Internal Medicine
PROC: 5A1D70Z Performance of Urinary Filtration, Intermittent, Less than 6 Hours Per Day (ICD-10-PCS; principal; 2022-02-21)
DX: I13.2 Hypertensive heart and chronic kidney disease with heart failure and with stage 5 chronic kidney disease, or end stage renal disease (principal); I50.33 Acute on chronic diastolic (congestive) heart failure; N18.6 End stage renal disease; E44.1 Mild protein-calorie malnutrition; E87.1 Hypo-osmolality and hyponatremia; G90.8 Other disorders of autonomic nervous system; J44.9 Chronic obstructive pulmonary disease, unspecified; E78.5 Hyperlipidemia, unspecified; E87.5 Hyperkalemia; E03.9 Hypothyroidism, unspecified; D63.1 Anemia in chronic kidney disease; I25.10 Atherosclerotic heart disease of native coronary artery without angina pectoris; F17.200 Nicotine dependence, unspecified, uncomplicated; Z68.34 Body mass index [BMI] 34.0-34.9, adult; Z99.2 Dependence on renal dialysis; Z91.199 Patient's noncompliance with other medical treatment and regimen due to unspecified reason; Z86.73 Personal history of transient ischemic attack (TIA), and cerebral infarction without residual deficits; Z83.3 Family history of diabetes mellitus; Z82.49 Family history of ischemic heart disease and other diseases of the circulatory system
CPT/HCPCS: 36415; 71045; 80048; 80053; 83735; 83880; 84484; 85025; 86850; 86900; 90935; 93005; 99285; J0885; J1200